=== PATIENT | male | born 1960 | race Caucasian/White ===

== ENCOUNTER → 2018-01-22 | Outpatient (CLI) | payer OTHER ==
--- NOTE | 2018-01-22 08:56 | RADIOLOGY REPORT (SQ) ---
EXAM DESCRIPTION: CAROTID DOPPLER COMPLETED DATE/TIME: 01/22/2018 8:45 am REASON FOR STUDY: DIZZINESS R42 DIZZINESS AND GIDDINESS COMPARISON: None. TECHNIQUE: Grayscale ultrasound, Doppler velocity and spectra, and color Doppler images acquired of the extra-cranial carotid and vertebral arteries. Images stored on PACS. LIMITATIONS: None. FINDINGS: RIGHT CAROTID CCA Velocities: Within normal limits. ICA Velocities Peak systolic 0.97 m/s. End diastolic 0.36 m/s. Proximal ICA/CCA peak systolic ratio 1.42. Spectra normal. No significant plaque. LEFT CAROTID CCA Velocities: Within normal limits. ICA Velocities Peak systolic 0.73 m/s. End diastolic 0.36 m/s. Proximal ICA/CCA peak systolic ratio 1.04. Spectra normal. No significant plaque. VERTEBRAL ARTERIES: Antegrade flow. Normal waveforms. SUBCLAVIAN ARTERIES: No finding. OTHER: No other significant finding. IMPRESSION: NO HEMODYNAMICALLY SIGNIFICANT STENOSIS. COMMENT: Quality ID #[id number]: Velocity criteria are extrapolated from the diameter data as defined by t he Society of Radiologists in Ultrasound Consensus Conference. Radiology 2003: 229; 340-346. TECHNICAL DOCUMENTATION: JOB ID: [id number] [employer]- All Rights Reserved Reading location - IP/workstation name: [email or web address]
== END ==
LOC: SP 07:44
PROVIDERS: ATTEND Internal Medicine Geriatric Medicine
DX: R42 Dizziness and giddiness (principal)
CPT/HCPCS: 93880

== ENCOUNTER → 2019-05-06 | Outpatient (CLI) | payer OTHER ==
--- NOTE | 2019-05-06 12:02 | RADIOLOGY REPORT (SQ) ---
EXAM DESCRIPTION: VENOUS BILATERAL LOWER COMPLETED DATE/TIME: 05/06/2019 11:42 am REASON FOR STUDY: SWELLING I80.9 PHLEBITIS AND THROMBOPHLEBITIS OF UNSPECIFIED SITE COMPARISON: None. TECHNIQUE: Dynamic and static mancera scale and color images acquired of both lower extremity venous sy stems. Selected spectral images acquired with additional compression and augmentation maneuvers. Imag es stored on PACS. LIMITATIONS: None. FINDINGS: RIGHT LEG COMMON FEMORAL AND FEMORAL: Normal phasicity, compression and augmentation. No visualized echogenic m aterial on mancera scale. No defects on color images. POPLITEAL: Normal compression and augmentation. No visualized echogenic material on mancera scale. No de fects on color images. CALF VESSELS: Normal compression and augmentation. No visualized echogenic material on mancera scale. No defects on color image. GSV AND SSV: Normal compression. No visualized echogenic material on mancera scale. No defects on color images. ANY DEEP VENOUS INSUFFICIENCY: Not evaluated. ANY EVIDENCE OF POPLITEAL CYST: No. OTHER: No other significant finding. LEFT LEG COMMON FEMORAL AND FEMORAL: A small hypoechoic incompletely occlusive clot is present in the left gre ater saphenous vein in the thigh. This is adjacent to a a thrombosed superficial thigh varicosity wi th hypoechoic acute clot. POPLITEAL: Normal compression and augmentation. No visualized echogenic material on mancera scale. No de fects on color images. CALF VESSELS: Normal compression and augmentation. No visualized echogenic material on mancera scale. No defects on color images. GSV AND SSV: Normal compression. No visualized echogenic material on mancera scale. No defects on color images. ANY DEEP VENOUS INSUFFICIENCY: Not evaluated. ANY EVIDENCE POPLITEAL CYST: No. OTHER: In the area of tender palpable abnormality left thigh, a thrombosed superficial varicosity jeny led with hypoechoic clot is present. IMPRESSION: NO EVIDENCE DVT OR SVT IN THE RIGHT LEG. ACUTE SUPERFICIAL VENOUS THROMBOSIS, LEFT THIGH VARICOSITY. ACUTE SMALL HYPOECHOIC INCOMPLETELY OCCLUSIVE CLOT LEFT GREATER SAPHENOUS VEIN, A ADJACENT TO THE THR OMBOSED SUPERFICIAL VARICOSITY. COMMENT: Pertinent findings on the imaging study reported as a CRITICAL RESULT to JASSI LEVINE MD at11:54 on 05/06/2019. Category of Critical Result: LEFT LEG SUPERFICIAL AND DEEP VENOUS THROMBOSIS TECHNICAL DOCUMENTATION: JOB ID: [id number] [employer]- All Rights Reserved Reading location - IP/workstation name: [email or web address]
== END ==
LOC: SP 10:16
PROVIDERS: ATTEND Internal Medicine Geriatric Medicine
DX: I80.11 Phlebitis and thrombophlebitis of right femoral vein (principal)
CPT/HCPCS: 93970

== ENCOUNTER 2019-06-07 12:36 | Emergency (ER) | payer OTHER ==
[2019-06-07] MEDS ORDERED: ASPIRIN 81 MG TABLET, CHEWABLE PO ONE (12:58)
--- NOTE | 2019-06-07 12:58 | ER Document Report ---
ED Medical Screen (RME) - General Stated Complaint: CHEST PAIN, SHORT OF BREATH Time Seen by Provider: 06/07/19 12:55 Primary Care Provider: JASSI LEVINE MD [Primary Care Provider] - Follow up as needed Mode of Arrival: Ambulatory Information source: Patient Notes: 58-year-old male presented to ED for complaint of chest pain. He states he saw Wm yesterday for an infection in his long-standing started on antibiotics but last night he developed chest pain Dr. Levine had told him that if he develops pain or worsening symptoms to come to the emergency room so he is at the emergency room. He is alert oriented respirations regular and unlabored speaking in full sentences. He did have a EKG here in 2011. He states he does take blood pressure and cholesterol medications. Denies any heart attacks himself his brothers or his father. I have greeted and performed a rapid initial assessment of this patient. A comprehensive ED assessment and evaluation of the patient, analysis of test results and completion of medical decision making process will be conducted by an additional ED providers. TRAVEL OUTSIDE OF THE [place] IN LAST 30 DAYS: No - Related Data Allergies/Adverse Reactions: Penicillins Allergy (Unknown, Verified 05/25/16 10:11) Past Medical History - Past Medical History Cardiac Medical History: Reports: Hx Hypercholesterolemia, Hx Hypertension Denies: Hx Coronary Artery Disease, Hx Heart Attack Pulmonary Medical History: Denies: Hx Asthma, Hx Bronchitis, Hx COPD, Hx Pneumonia, Hx Tuberculosis Neurological Medical History: Reports: Hx Seizures - A CHILD X1. Denies: Hx Cerebrovascular Accident GI Medical History: Denies: Hx Hepatitis, Hx Hiatal Hernia, Hx Ulcer Musculoskeltal Medical History: Denies Hx Arthritis Infectious Medical History: Denies: Hx Hepatitis Past Surgical History: Denies: Hx Open Heart Surgery, Hx Pacemaker - Immunizations Hx Diphtheria, Pertussis, Tetanus Vaccination: No Physical Exam - Vital signs Vitals: Temp Pulse Resp BP Pulse Ox 98.8 F 78 18 109/68 95 06/07/19 12:51 06/07/19 12:51 06/07/19 12:51 06/07/19 12:51 06/07/19 12:51 Course - Vital Signs Vital signs: Temp Pulse Resp BP Pulse Ox 98.8 F 78 18 109/68 95 06/07/19 12:51 06/07/19 12:51 06/07/19 12:51 06/07/19 12:51 06/07/19 12:51 Doctor's Discharge - Discharge Referrals: JASSI LEVINE MD [Primary Care Provider] - Follow up as needed
--- NOTE | 2019-06-07 13:44 | RADIOLOGY REPORT (SQ) ---
EXAM DESCRIPTION: CHEST 2 VIEWS COMPLETED DATE/TIME: 06/07/2019 1:28 pm REASON FOR STUDY: chest pain COMPARISON: 12/26/2011. EXAM PARAMETERS: NUMBER OF VIEWS: two views TECHNIQUE: Digital Frontal and Lateral radiographic views of the chest acquired. RADIATION DOSE: NA LIMITATIONS: none FINDINGS: LUNGS AND PLEURA: No opacities, masses or pneumothorax. No pleural effusion. MEDIASTINUM AND HILAR STRUCTURES: No masses or contour abnormalities. HEART AND VASCULAR STRUCTURES: Heart normal size. No evidence for failure. BONES: No acute findings. HARDWARE: None in the chest. OTHER: No other significant finding. IMPRESSION: NO ACUTE RADIOGRAPHIC FINDING IN THE CHEST. TECHNICAL DOCUMENTATION: JOB ID: [id number] [employer]- All Rights Reserved Reading location - IP/workstation name: [email or web address]
[2019-06-07 13:54] LABS: HEMOGLOBIN 13.5 g/dL (13.5-17.0); MEAN CORPUSCULAR HEMOGLOBIN 27.7 pg (27.0-33.4); MEAN CORPUSCULAR HGB CONC 33.1 g/dL (32.0-36.0); MEAN CORPUSCULAR VOLUME 84 fl (80-97); PLATELET COUNT 338 10^3/uL (150-450); RED BLOOD COUNT 4.89 10^6/uL (4.35-5.55); RED CELL DISTRIBUTION WIDTH 13.9 % (11.5-14.0); WHITE BLOOD COUNT 15.5 10^3/uL (4.0-10.5)
[2019-06-07 13:56] LABS: INTERNATIONAL RATION (INR) 1.17
[2019-06-07 14:08] LABS: ALBUMIN 4.3 g/dL (3.5-5.0); ALKALINE PHOSPHATASE 44 U/L (38-126); ANION GAP 8 (5-19); ASPARTATE AMINO TRANSFERASE 27 U/L (17-59); BILIRUBIN,DIRECT 0.2 mg/dL (0.0-0.4); BILIRUBIN,TOTAL 0.5 mg/dL (0.2-1.3); BLOOD UREA NITROGEN 27 mg/dL (7-20); CALCIUM 10.3 mg/dL (8.4-10.2); CARBON DIOXIDE 27 mmol/L (22-30); CHLORIDE 103 mmol/L (98-107); CREATINE KINASE 101 U/L (55-170); GLUCOSE 109 mg/dL (75-110); POTASSIUM 5.1 mmol/L (3.6-5.0); TOTAL PROTEIN 7.3 g/dL (6.3-8.2)
[2019-06-07 14:16] LABS: ABSOLUTE LYMPHOCYTES# (MANUAL) 2.5 10^3/uL (0.5-4.7); ABSOLUTE MONOCYTES # (MANUAL) 0.8 10^3/uL (0.1-1.4); BASOPHILS % (MANUAL) 1 % (0-2); EOSINOPHILS % (MANUAL) 23 % (0-6); LYMPHOCYTES % (MANUAL) 16 % (13-45); MONOCYTES % (MANUAL) 5 % (3-13); PLATELET COMMENT ADEQUATE; PLATELET GIANT PRESENT; PLATELET LARGE PRESENT; RBC MORPHOLOGY COMMENT NORMO-CYTIC/CHROMIC; SEGMENTED NEUTROPHILS % (MAN) 55 % (42-78); TOTAL CELLS COUNTED 100
[2019-06-07 14:20] LABS: CREATINE KINASE MB 0.83 ng/mL (<4.55); NT PRO BNP 51 pg/mL (5-900); TROPONIN I < 0.012 ng/mL
--- NOTE | 2019-06-07 15:37 | ER Document Report ---
ED General - General Chief Complaint: Chest Pain Stated Complaint: CHEST PAIN, SHORT OF BREATH Time Seen by Provider: 06/07/19 12:55 Primary Care Provider: JASSI LEVINE MD [Primary Care Provider] - Follow up as needed Mode of Arrival: Ambulatory Notes: 58-year-old male with hypertension and hyperlipidemia presents to the ED for complaint of chest pain. He states he saw after Wm yesterday for an infection and was prescribed Zithromax but started developing the chest pain last night. Dr. Levine had told him that if he develops pain or worsening symptoms to come to the emergency room. Denies any diaphoresis, nausea, acute shortness of breath, patient is not a smoker, no positive family history for cardiac disease or adverse cardiac events. Patient states the pain is rep roducible but is still present at rest. TRAVEL OUTSIDE OF THE [place] IN LAST 30 DAYS: No - Related Data Allergies/Adverse Reactions: Penicillins Allergy (Unknown, Verified 05/25/16 10:11) Past Medical History - General Information source: Patient - Social History Smoking Status: Unknown if Ever Smoked Family History: None Patient has suicidal ideation: No Patient has homicidal ideation: No - Past Medical History Cardiac Medical History: Reports: Hx Hypercholesterolemia, Hx Hypertension Denies: Hx Coronary Artery Disease, Hx Heart Attack Pulmonary Medical History: Denies: Hx Asthma, Hx Bronchitis, Hx COPD, Hx Pneumonia, Hx Tuberculosis Neurological Medical History: Reports: Hx Seizures - A CHILD X1. Denies: Hx Cerebrovascular Accident GI Medical History: Denies: Hx Hepatitis, Hx Hiatal Hernia, Hx Ulcer Musculoskeletal Medical History: Denies Hx Arthritis Infectious Medical History: Denies: Hx Hepatitis Past Surgical History: Denies: Hx Open Heart Surgery, Hx Pacemaker - Immunizations Hx Diphtheria, Pertussis, Tetanus Vaccination: No Review of Systems - Review of Systems Constitutional: See HPI EENT: No symptoms reported Cardiovascular: See HPI Respiratory: See HPI Gastrointestinal: See HPI Genitourinary: No symptoms reported Male Genitourinary: No symptoms reported Musculoskeletal: No symptoms reported Skin: No symptoms reported Hematologic/Lymphatic: No symptoms reported Neurological/Psychological: No symptoms reported Physical Exam - Vital signs Vitals: Temp Pulse Resp BP Pulse Ox 98.8 F 78 18 109/68 95 06/07/19 12:51 06/07/19 12:51 06/07/19 12:51 06/07/19 12:51 06/07/19 12:51 - Notes Notes: PHYSICAL EXAMINATION: Reviewed vital signs and charting by RN GENERAL: Alert, interacts well. No acute distress. HEAD: Normocephalic, atraumatic. EYES: Pupils equal and round. Extraocular movements intact. ENT: Oral mucosa moist, tongue midline. NECK: Full range of motion. Trachea midline. LUNGS: Clear to auscultation bilaterally, no wheezes, rales, or rhonchi. No respiratory distress. HEART: Regular rate and rhythm. No murmur ABDOMEN: soft, non-tender. No distention. Bowel sounds present EXTREMITIES: Moves all 4 extremities spontaneously. No edema, No cyanosis. PSYCH: Normal affect, normal mood. SKIN: Warm, dry, normal turgor. No rashes or lesions noted. Course - Re-evaluation Re-evalutation: 06/07/19 15:34 Overall well-appearing. Presentation of chest pain in an otherwise well appearing patient. Low clinical suspicion for ACS given clinical history, exam, EKG without ST elevations or depressions, and negative initial troponin. PE also seems unlikely given clinical history, absence of tachycardia or dyspnea. Patient is PERC criteria negative. CXR without evidence of pneumothorax or pneumonia. No widened mediastinum. Aortic dissection also seems unlikely given history, symmetric pulses, CXR, and vitals. Chest x-ray did not show pulmonary infiltrate or any evidence of a pneumonia. EKG normal sinus rhythm with a rate of 80 patient with a leukocytosis of 15,[address] Levine he said it is actually come down from over 18,000 that was in his office. Dr. Trejo said that he put him on a short course of Levaquin for pneumonia but the patient returned to his office feeling worse and he put him on Zithromax. Initial troponin negative. Heart score 2 for age and risk factors. Gm trejo states that he will see the patient in the office Sunday morning and based on patient's appearance, vital signs, and work-up patient does not be admitted to the hospital. I explained this to patient and he agrees with the plan. He is stable for discharge. 06/07/19 15:37 - Vital Signs Vital signs: Temp Pulse Resp BP Pulse Ox 98.8 F 78 18 109/68 95 06/07/19 12:51 06/07/19 12:51 06/07/19 12:51 06/07/19 12:51 06/07/19 12:51 - Laboratory Result Diagrams: 06/07/19 13:09 06/07/19 13:09 Laboratory results interpreted by me: 06/07/19 06/07/19 13:09 13:09 WBC 15.5 H Eosinophils % (Manual) 23 H Abs Neuts (Manual) 8.5 H Absolute Eos (Manual) 3.6 H Potassium 5.1 H BUN 27 H Creatinine 1.28 H Est GFR (MDRD) Non-Af 58 L Calcium 10.3 H Discharge - Discharge Clinical Impression: Chest pain Qualifiers: Chest pain type: unspecified Qualified Code(s): R07.9 - Chest pain, unspecified Condition: Good Disposition: HOME, SELF-CARE Additional Instructions: You were seen today for chest pain. The exact cause of your pain is unclear. However, based on your cardiac enzyme testing, chest x-ray, and EKG it does not appear that it is from an immediately life-threatening cause at this time. Although your testing here is normal is critical that you follow-up with your primary care physician for continued evaluation of this chest pain and possible stress testing. Dr. Levine wants to see you in his office early next week and you can discuss the potential of a reactive stress test. Please return to emergency department immediately if you have worsening of your chest pain, shortness of breath, vomiting, become unable to exert yourself due to pain or difficulty breathing, you pass out, or have any pain that radiates into your arms, jaw, or back. Please also return if you have any additional symptoms that are concerning to you. Referrals: JASSI LEVINE MD [Primary Care Provider] - 06/09/19 8:00 am
[2019-06-07 16:22] VITALS: BP 110/80
--- NOTE | 2019-06-07 19:20 | EKG REPORT ---
SEVERITY:- NORMAL ECG - SINUS RHYTHM : Confirmed by: Charlene Garcia MD 07-Jun-2019 19:19:43
== END 2019-06-07 16:02 | disposition home or self-care (01) ==
LOC: ER 12:36
DX: R07.9 Chest pain, unspecified (principal); D72.829 Elevated white blood cell count, unspecified; I10 Essential (primary) hypertension; Z88.0 Allergy status to penicillin
CPT/HCPCS: 36415; 71046; 80053; 82550; 82553; 83735; 83880; 84443; 84484; 85025; 85610; 85730; 93005; 93010; 99285

== ENCOUNTER → 2020-04-27 | Outpatient (CLI) | payer OTHER ==
--- NOTE | 2020-04-27 12:16 | RADIOLOGY REPORT (SQ) ---
EXAM DESCRIPTION: CAROTID DOPPLER IMAGES COMPLETED DATE/TIME: 04/27/2020 10:21 am REASON FOR STUDY: DIZZINESS R42 DIZZINESS AND GIDDINESS COMPARISON: 01/22/2018 TECHNIQUE: Grayscale ultrasound, Doppler velocity and spectra, and color Doppler images acquired of the extra-cranial carotid and vertebral arteries. Images stored on PACS. LIMITATIONS: None. FINDINGS: RIGHT CAROTID CCA Velocities: Within normal limits. ICA Velocities Peak systolic 100 cm/s. End diastolic 35 cm/s. Proximal ICA/CCA peak systolic ratio 1.47. There is a small amount of plaque in the carotid bulb. LEFT CAROTID CCA Velocities: Within normal limits. ICA Velocities Peak systolic 59 cm/s. End diastolic 28 cm/s. Proximal ICA/CCA peak systolic ratio 0.82. There is some plaque in the carotid bulb. VERTEBRAL ARTERIES: Antegrade flow. Normal waveforms. SUBCLAVIAN ARTERIES: No finding. OTHER: No other significant finding. IMPRESSION: NO HEMODYNAMICALLY SIGNIFICANT STENOSIS. COMMENT: Quality ID #[id number]: Velocity criteria are extrapolated from the diameter data as defined by t he Society of Radiologists in Ultrasound Consensus Conference. Radiology 2003: 229; 340-346. TECHNICAL DOCUMENTATION: JOB ID: [id number] All Rights Reserved Reading location - IP/workstation name: [email or web address]
== END ==
LOC: SP 08:36
PROVIDERS: ATTEND Nurse Practitioner Adult Health
DX: R42 Dizziness and giddiness (principal)
CPT/HCPCS: 93880